=== PATIENT | female | born 1980 | race Caucasian/White ===

== ENCOUNTER 2020-05-29 13:47 | Emergency (ER) | payer OTHER ==
--- OUTSIDE RECORDS SUMMARY | 2020-05-29 14:19 | XMS REPORT | Continuity of Care Document ---
:1980 Author Organization [facility] t Address [address] [place] [address] Care Team Providers Name Role Phone Lab, Agustin Pob I Attending Clinician Unavailable Problems Condition Condition Condition Status Onset Resolution Last Treating Co mments Source Name Details Category Date Date Treatment Clinician Date Cyst of Cyst of Problem Active [facility] left ovary left ovary [facility]es - [facility] Pelvic Pelvic Problem Active [facility] pain pain [facility] Chills Chills Problem Active [facility] Acute Acute Problem Active [facility] nasopharyn nasopharyn Mari kes - gitis gitis Memoria [common [common l cold] cold] [facility] Encounter Encounter Problem Active [facility] - screening screening Abdirahman grabiel mammogram mammogram l for breast for breast [facility] IUD IUD Problem Active [facility] surveillan surveillan Mari kes - ce ce Memoria l [facility] ent Clinics Well woman Well woman Problem Active [facility] exam with exam with Luke s - routine routine Memoria gynecologi gynecologi l deborah exam deborah exam Outpat i ent Clinics Allergies, Adverse Reactions, Alerts Allergy Allergy Status Severity Reaction(s) Onset Inactive Treating Comm ents Source Name Type Date Date Clinician Erythrom Adverse Active Info Not [facility] t ycin Reaction Available [facility] Clinics Bactrim Adverse Active Info Not [facility] Reaction Available [facility]ics Augmenti Adverse Active Info Not [facility] t n Reaction Available [facility] Clinics Medications Ordered Filled Start Stop Current Ordering Indication Dosage Frequency Signature Comments Components Source Medication Medication Date Date Medication? Clinician (SIG) Name Name Dallas Haynes 2017-07 Yes Ann [address] 0-05 [place] each [facility] - 00:00: nostril Memoria 00 prn l [facility] Yes Ann 1 tablet [facility] Thyroid Thyroid [place] on an [facility] - empty Memoria stomach l [facility] Yes Ann 1 tablet [facility] t Thyroid Thyroid [place] on an [facility] - empty Memoria stomach l [facility] Procedures This patient has no known procedures. Encounters Start End Encounter Admission Attending Care Care Encounter Source Date/Time Date/Time Type Type Clinicians Facility Department ID 2020-02-03 2020-02-03 Laboratory Lab, [facility] [id number] 14:36:38 14:56:38 Only Fam Pob I Health [id number] [place] [id number] Professio [phone] nal 044 [address] One 2018-10-27 2018-10-27 Out[facility] [id number] [address] 09:15:00 09:15:00 t Urgent Urgent Care L [facility] - Care Clinic [facility] 2018-04-30 2018-04-30 Out[facility] [id number] 11:00:00 11:00:00 t Urgent Urgent Care L [facility] - Care [facility] 2018-03-03 2018-03-03 [facility] [id number] [address] 16:09:00 16:09:00 [facility] 2017-11-23 2017-11-23 [facility] [id number] 16:00:00 16:00:00 t [facility] Results This patient has no known results.
--- NOTE | 2020-05-29 17:02 | ER ---
Nurse's Notes [facility] Name: Deyanira Chaidez Age: 40 yrs Sex: Female : 1980 Arrival Date: 05/29/2020 Time: 13:48 Bed 6 Private MD: Diagnosis: Low back pain;Pain in right knee;Abrasion of right upper arm;Fall on same level from slipping, tripping and stumbling Presentation: 05/29 14:04 Chief complaint: Patient states: Slipped on wet surface at 1130. No LOC. Right knee ll1 pain and low back pain since. Abrasion noted to right bicep area. Coronavirus screen: Client denies travel out of the [place] in the last 14 days. At this time, the client does not indicate any symptoms associated with coronavirus-19. Ebola Screen: Patient denies travel to an Ebola-affected area in the 21 days before illness onset. Initial Sepsis Screen: Does the patient meet any 2 criteria? HR > 90 bpm. No. Patient's initial sepsis screen is negative. Does the patient have a suspected source of infection? Yes: Bone or joint infection. Risk Assessment: Do you want to hurt yourself or someone else? Patient reports no desire to harm self or others. Onset of symptoms was May 29, 2020. 14:04 Method Of Arrival: Ambulatory ll1 14:04 Acuity: NAE 4 ll1 Historical: - Allergies: 14:04 Bactrim; ll1 14:04 Erythromycin; ll1 - PMHx: 14:04 Endometrosis; Thyroid problem; ll1 - PSHx: 14:04 Tonsillectomy; Adenoids; Knee surgery; endometreosis surg x2; ; ll1 - Immunization history:: Flu vaccine is up to date. - Social history:: Smoking status: Patient denies any tobacco usage or history of. Screenin:39 Abuse screen: Denies threats or abuse. Denies injuries from another. Nutritional sv screening: No deficits noted. Tuberculosis screening: No symptoms or risk factors identified. Fall Risk None identified. Assessment: 15:46 General: Appears in no apparent distress. comfortable, well groomed, well developed, sv Behavior is calm, cooperative, appropriate for age. Pain: Complains of pain in lumbar area and right knee Pain currently is 6 out of 10 on a pain scale. Is intermittent. Neuro: Level of Consciousness is awake, alert, obeys commands, Oriented to person, place, time, situation, Moves all extremities. Full function Gait is steady, Speech is normal. Cardiovascular: Patient's skin is warm and dry. Pulses are palpable in right radial artery, right dorsalis pedis artery and left radial artery. Respiratory: Respiratory effort is even, unlabored, Respiratory pattern is regular, symmetrical. Derm: Skin is intact, Skin is pink, warm \T\ dry. Musculoskeletal: Circulation, motion, and sensation intact. Range of motion: intact in all extremities. Injury Description: Abrasion sustained to right bicep. 16:42 Reassessment: Patient appears in no apparent distress at this time. No changes from sv previously documented assessment. Patient and/or family updated on plan of care and expected duration. Pain level reassessed. Patient is alert, oriented x 3, equal unlabored respirations, skin warm/dry/pink. 17:09 Reassessment: Patient appears in no apparent distress at this time. No changes from sv previously documented assessment. Patient and/or family updated on plan of care and expected duration. Pain level reassessed. Patient is alert, oriented x 3, equal unlabored respirations, skin warm/dry/pink. Vital Signs: 14:04 BP 127 / 82; Pulse 115; Resp 17; Temp 97.8; Pulse Ox 100% ; Pain 6/10; ll1 15:52 BP 143 / 87; Pulse 97; Resp 16; Pulse Ox 99% ; sv 16:09 BP 127 / 88; Pulse 81; Resp 16; Pulse Ox 100% ; sv ED Course: 13:48 Patient arrived in ED. ag5 14:06 Triage completed. ll1 14:06 Arm band placed on. ll1 15:37 Samantha Venegas FNP-C is [facility]. kb 15:37 Kai Man MD is Attending Physician. kb 15:38 Maggi Downs RN is Primary Nurse. sv 15:39 Patient has correct armband on for positive identification. Bed in low position. Call sv light in reach. Door closed. Head of bed elevated. 15:52 Nurse Practitioner and/or Physician Picker Feeder to see patient. sv 15:52 Awaiting for x-ray. sv 15:52 Placed in gown. Pulse ox on. NIBP on. sv 15:52 Warm blanket given. sv 16:09 Awaiting for x-ray. sv 16:41 Awaiting radiology results. sv 16:41 Knee Right 3 View XRAY Sent. sv 16:41 Lumbar Spine (3 Views) XRAY Sent. sv 17:05 Lumbar Spine (3 Views) XRAY In Process Unspecified. EDMS 17:05 Knee Right 3 View XRAY In Process Unspecified. EDMS 17:09 No provider procedures requiring assistance completed. Patient did not have IV access sv during this emergency room visit. Administered Medications: No medications were administered Outcome: 17:02 Discharge ordered by . kb 17:09 Patient left the ED. sv 17:09 Discharged to home ambulatory. sv 17:09 Condition: stable 17:09 Discharge instructions given to patient, Instructed on discharge instructions, follow up and referral plans. medication usage, Demonstrated understanding of instructions, follow-up care, medications, Prescriptions given X 2. Signatures: Dispatcher [employer] EDSD Samantha Venegas, RX SPECIALIST-C RX SPECIALIST-Maggi Ordoñez RN RN Danyelle Ibrahim ag5 Art Sparrow, RN RN ll1
--- NOTE | 2020-05-29 17:03 | EDPHYS ---
Physician Documentation [facility] Name: Deyanira Chaidez Age: 40 yrs Sex: Female : 1980 Arrival Date: 05/29/2020 Time: 13:48 Bed 6 Private MD: ED Physician Kai Man HPI: 05/29 15:57 This 40 yrs old Female presents to ER via Ambulatory with complaints of Fall kb Injury. 15:57 Details of fall: The patient fell from an upright position, while walking. Onset: The kb symptoms/episode began/occurred just prior to arrival. Associated injuries: The patient sustained low back area, painful injury, right bicep, abrasion, right knee, painful injury. Severity of symptoms: At their worst the symptoms were mild, in the emergency department the symptoms are unchanged. The patient has not experienced similar symptoms in the past. The patient has not recently seen a physician. Pt reports she slipped in a small puddle of [place] on right side. c/o low back pain, knee pain and scratch to right upper arm. . Historical: - Allergies: 14:04 Bactrim; ll1 14:04 Erythromycin; ll1 - PMHx: 14:04 Endometrosis; Thyroid problem; ll1 - PSHx: 14:04 Tonsillectomy; Adenoids; Knee surgery; endometreosis surg x2; ; ll1 - Immunization history:: Flu vaccine is up to date. - Social history:: Smoking status: Patient denies any tobacco usage or history of. ROS: 15:52 Constitutional: Negative for fever, chills, and weight loss, Respiratory: Negative for kb shortness of breath, cough, wheezing, and pleuritic chest pain, Neuro: Negative for headache, weakness, numbness, tingling, and seizure. 15:52 Back: Positive for pain with movement, of the lumbar area. 15:52 MS/extremity: Positive for pain, tenderness, of the lumbar area. 15:52 Skin: Positive for abrasion(s), of the right bicep. Exam: 15:54 Constitutional: This is a well developed, well nourished patient who is awake, alert, kb and in no acute distress. Head/Face: Normocephalic, atraumatic. MS/ Extremity: Pulses equal, no cyanosis. Neurovascular intact. Full, normal range of motion. Neuro: Awake and alert, GCS 15, oriented to person, place, time, and situation. Cranial nerves II-XII grossly intact. Motor strength 5/5 in all extremities. Sensory grossly intact. Cerebellar exam normal. Normal gait. 15:54 Back: pain, that is mild, ROM is painful, with all movement, normal spinal alignment noted, CVA tenderness, is absent, vertebral tenderness, is appreciated at lumbar spine. 15:54 Skin: injury, abrasion(s), small abrasion noted, of the right bicep, contusion(s), that are superficial, of the right bicep. Vital Signs: 14:04 BP 127 / 82; Pulse 115; Resp 17; Temp 97.8; Pulse Ox 100% ; Pain 6/10; ll1 15:52 BP 143 / 87; Pulse 97; Resp 16; Pulse Ox 99% ; sv 16:09 BP 127 / 88; Pulse 81; Resp 16; Pulse Ox 100% ; sv MDM: 15:37 Patient medically screened. kb 15:45 Patient medically screened. kb 15:53 Data reviewed: vital signs, nurses notes. Data interpreted: Pulse oximetry: on room air kb is 99 %. Interpretation: normal. Counseling: I had a detailed discussion with the patient and/or guardian regarding: the historical points, exam findings, and any diagnostic results supporting the discharge/admit diagnosis, radiology results, the need for outpatient follow up, a family practitioner, to return to the emergency department if symptoms worsen or persist or if there are any questions or concerns that arise at home. 05/29 15:51 Order name: Lumbar Spine (3 Views) XRAY; Complete Time: 07:32 kb 05/29 15:51 Order name: Knee Right 3 View XRAY; Complete Time: 07:32 kb Administered Medications: No medications were administered Disposition: 17:34 Co-signature as Attending Physician, Kai Man MD. rn Disposition: 05/29/20 17:02 Discharged to Home. Impression: Low back pain, Pain in right knee, Abrasion of right upper arm, Fall on same level from slipping, tripping and stumbling. - Condition is Stable. - Discharge Instructions: Musculoskeletal Pain. - Prescriptions for Cyclobenzaprine 10 mg Oral Tablet - take 1 tablet by ORAL route every 8 hours As needed; 21 tablet. Diclofenac Sodium 75 mg Oral Tablet, Delayed Release (E.C.) - take 1 tablet by ORAL route 2 times per day As needed; 30 tablet. - Medication Reconciliation Form, Thank You Letter, Antibiotic Education, Prescription Opioid Use form. - Follow up: Emergency Department; When: As needed; Reason: Worsening of condition. Follow up: Private Physician; When: 2 - 3 days; Reason: Recheck today's complaints, Continuance of care, Re-evaluation by your physician. Signatures: Dispatcher [employer] EDMS Samantha Venegas, LUCAS-C METAL WORK DUCT INSTALLER-Maggi Ordoñez, RN RN sv Kai Man MD MD rn Andrews, Art RN RN ll1 Corrections: (The following items were deleted from the chart) 15:58 15:54 Skin: injury, abrasion(s), small abrasion noted, of the right bicep, kb kb 17:09 17:02 05/29/2020 17:02 Discharged to Home. Impression: Low back pain; Pain in right sv knee; Abrasion of right upper arm; Fall on same level from slipping, tripping and stumbling. Condition is Stable. Forms are Medication Reconciliation Form, Thank You Letter, Antibiotic Education, Prescription Opioid Use. Follow up: Emergency Department; When: As needed; Reason: Worsening of condition. Follow up: Private Physician; When: 2 - 3 days; Reason: Recheck today's complaints, Continuance of care, Re-evaluation by your physician. kb
--- NOTE | 2020-05-29 17:29 | RAD REPORT ---
EXAM DESCRIPTION: RAD - Lumbar Spine 3 Views - 05/29/2020 5:05 pm CLINICAL HISTORY: PAIN COMPARISON: LUMBAR SPINE 3 VIEWS dated 05/08/2014 FINDINGS: A three-view lumbar spine examination was performed. Lumbar bodies are normal in height and alignment. No fracture or acute bony process seen. L5-S1 disc space narrowing present. This has progressed since 2014. No other disc space narrowing. Minimal endpl ate spurring changes are present. No pars defects identified. No significant SI joint finding. IMPRESSION: No fracture or acute lumbar finding. L5-S1 disc space narrowing has progressed since 2014. Concerns for disc herniation, central canal abn ormality or occult bone process can be addressed with MR imaging.
--- NOTE | 2020-05-29 17:29 | RAD REPORT ---
EXAM DESCRIPTION: RAD - Knee Right 3 View - 05/29/2020 5:05 pm CLINICAL HISTORY: PAIN COMPARISON: No comparisons FINDINGS: No fracture, dislocation or periosteal reaction.No joint effusion seen. No joint space ian rowing. No foreign body or other soft tissue abnormality. IMPRESSION: Negative right knee. Clinical concerns for internal derangement or occult bony injury could be further assessed with MR im aging.
[2020-05-29 18:20] VITALS: TEMP 97.8
[2020-05-29 18:24] VITALS: BP 127/88; O2SAT 100
== END 2020-05-29 17:09 | disposition home or self-care (01) ==
LOC: ER 13:47
DX: S40.811A Abrasion of right upper arm, initial encounter (principal); M25.561 Pain in right knee; W01.0XXA Fall on same level from slipping, tripping and stumbling without subsequent striking against object, initial encounter; Y93.01 Activity, walking, marching and hiking; Y92.233 Cafeteria of hospital as the place of occurrence of the external cause; Y99.8 Other external cause status; Z88.1 Allergy status to other antibiotic agents; Z88.3 Allergy status to other anti-infective agents
CPT/HCPCS: 72100; 99283

== ENCOUNTER 2020-06-07 07:11 | Emergency (ER) | payer OTHER ==
--- OUTSIDE RECORDS SUMMARY | 2020-06-07 07:13 | XMS REPORT | Continuity of Care Document ---
:1980 Author Organization [facility] t Address [address] [place] [address] Care Team Providers Name Role Phone Lab, Agustin Pob I Attending Clinician Unavailable Problems Condition Condition Condition Status Onset Resolution Last Treating Co mments Source Name Details Category Date Date Treatment Clinician Date Cyst of Cyst of Problem Active [facility] left [facility] left ovary Mari kes - [facility] Pelvic Pelvic Problem Active [facility] pain pain [facility] Clinics Chills Chills Problem Active [facility] Acute Acute Problem Active [facility] nasopharyn nasopharyn Mari kes - gitis gitis Memoria [common [common l cold] cold] [facility] Encounter Encounter Problem Active [facility] for [facility] - screening screening Abdirahman grabiel mammogram mammogram l for breast for breast [facility] ent Clinics IUD IUD Problem Active [facility] surveillan surveillan Mari kes - ce ce Memoria l [facility] ent Clinics Well woman Well woman [...] ycin Reaction Available [facility] - [facility] ent Clinics Bactrim Adverse Active Info Not [facility] Reaction Available [facility] - [facility] ent Clinics Augmenti Adverse Active Info Not [facility] t n Reaction Available [facility] - [facility]oria [facility] ent Clinics Medications Ordered Filled Start Stop Current Ordering Indication Dosage Frequency Signature Comments Components Source Medication Medication Date Date Medication? Clinician (SIG) Name Name Dallas Haynes 2017-07 Yes Ann [address] 0-05 [place] each [facility] - 00:00: nostril Memoria 00 prn l [facility] Yes Ann 1 tablet [facility] t Thyroid Thyroid [place] on an [facility] - empty Memoria stomach l [facility] Yes Ann 1 tablet [facility] t Thyroid Thyroid [place] on an [facility]ukes - empty Memoria stomach l [facility] Procedures This patient has no known procedures. Encounters Start End Encounter Admission Attending Care Care Encounter Source Date/Time Date/Time Type Type Clinicians Facility Department ID 2020-02-03 2020-02-03 Laboratory Lab, [facility] [id number] 14:36:38 14:56:38 Only Fam Pob I Health [id number] [place] [id number] Professio [phone] nal 044 [address] 2018-10-27 2018-10-27 Outpatient [facility] [id number] 09:15:00 09:15:00 t [facility] 2018-04-30 2018-04-30 Out[facility] [id number] 11:00:00 11:00:00 t Urgent [facility] 2018-03-03 2018-03-03 Outpatient [facility] [place] [id number] 16:09:00 16:09:00 t [facility] 2017-11-23 2017-11-23 [facility] [id number] 16:00:00 16:00:00 t [facility] Results This patient has no known results.
--- NOTE | 2020-06-07 08:23 | RAD REPORT ---
EXAM DESCRIPTION: CT - Pelvis Wo Cont - 06/07/2020 8:01 am CLINICAL HISTORY: pain from fall Fall, right hip pain COMPARISON: Pelvis Wo Cont dated 01/08/2017; Spine Lumbar Wo Con dated 06/07/2020 TECHNIQUE: All CT scans are performed using dose optimization technique as appropriate and may inclu de automated exposure control or mA/KV adjustment according to patient size. 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 There is no evidence of acute fracture or dislocation. No AVN pattern is observed. No soft tissue mas s or hematoma is present. Sacroiliac joints are symmetric. IUD is seen in the uterus IMPRESSION: No acute abnormality identified.
--- NOTE | 2020-06-07 08:25 | RAD REPORT ---
EXAM DESCRIPTION: CT - Spine Lumbar Wo Con - 06/07/2020 8:01 am CLINICAL HISTORY: Radiculopathy. pain from fall COMPARISON: No comparisons TECHNIQUE: Axial noncontrast CT imaging of the lumbar spine was performed with coronal and sagittal re-formatted images. All CT scans are performed using dose optimization technique as appropriate and may include automated exposure control or mA/KV adjustment according to patient size. FINDINGS: No acute lumbar spine fracture seen. No aggressive marrow pattern or malalignment. Paraspinal tissues are normal in thickness. No paraspinal abscess or hematoma seen. Mild disc thinning at L5-S1. IMPRESSION: No acute lumbar spine abnormality.
--- NOTE | 2020-06-07 10:36 | EDPHYS ---
Physician Documentation [facility] Name: Deyanira Chaidez Age: 40 yrs Sex: Female : 1980 Arrival Date: 06/07/2020 Time: 07:13 Bed 17 Private MD: ED Physician Markus Ross HPI: 06/07 07:38 This 40 yrs old Female presents to ER via Ambulatory with complaints of kdr Follow Up From Fall. 07:38 The patient or guardian reports an injury, pain. that occurred at work, sustained from kdr a fall, from a standing position, while walking, There is no obvious deformity, The patient is able to self ambulate. The patient is able to bear their full body weight. The patient's discomfort radiates to the right femoral area and right hip. The complaints affect the coccyx, right femoral area and right hip. Onset: The symptoms/episode began/occurred suddenly, 1 week(s) ago. Modifying factors: The symptoms are alleviated by nothing, the symptoms are aggravated by any movement, weight bearing. Associated signs and symptoms: Loss of consciousness: the patient experienced no loss of consciousness, Pertinent positives: None. Severity of symptoms: At their worst the symptoms were moderate, just prior to arrival, in the emergency department the symptoms are unchanged. The patient has not experienced similar symptoms in the past. The patient has been recently seen by a physician: The patient has been recently seen at the [facility] Emergency Department, last week. Historical: - Allergies: 07:21 Bactrim; hb 07:21 Erythromycin; hb - Home Meds: 07:21 [place] Thyroid 120 mg Oral tab daily [Active]; hb - PMHx: 07:21 Endometrosis; Thyroid problem; hb - PSHx: 07:21 Tonsillectomy; Adenoids; Knee surgery; endometreosis surg x2; ; hb - Immunization history:: Adult Immunizations up to date. - Social history:: Smoking status: Patient denies any tobacco usage or history of. ROS: 07:38 Constitutional: Negative for fever, chills, and weight loss, Eyes: Negative for injury, kdr pain, redness, and discharge, ENT: Negative for injury, pain, and discharge, Neck: Negative for injury, pain, and swelling, Cardiovascular: Negative for chest pain, palpitations, and edema, Respiratory: Negative for shortness of breath, cough, wheezing, and pleuritic chest pain, Abdomen/GI: Negative for abdominal pain, nausea, vomiting, diarrhea, and constipation, Back: Negative for injury and pain, : Negative for injury, bleeding, discharge, and swelling, Skin: Negative for injury, rash, and discoloration, Neuro: Negative for headache, weakness, numbness, tingling, and seizure activity. Psych: Negative for depression, anxiety, suicide ideation, homicidal ideation, and hallucinations, Allergy/Immunology: Negative for hives, rash, and allergies, Endocrine: Negative for neck swelling, polydipsia, polyuria, polyphagia, and marked weight changes, Hematologic/Lymphatic: Negative for swollen nodes, abnormal bleeding, and unusual bruising. 07:38 MS/extremity: Positive for injury or acute deformity, pain, tenderness, of the right femoral area and right hip. Exam: 07:38 Constitutional: This is a well developed, well nourished patient who is awake, alert, kdr and in no acute distress. Head/Face: Normocephalic, atraumatic. Eyes: Pupils equal round and reactive to light, extra-ocular motions intact. Lids and lashes normal. Conjunctiva and sclera are non-icteric and not injected. Cornea within normal limits. Periorbital areas with no swelling, redness, or edema. Neck: Trachea midline, no thyromegaly or masses palpated, and no cervical lymphadenopathy. Supple, full range of motion without nuchal rigidity, or vertebral point tenderness. No Meningismus. Chest/axilla: Normal chest wall appearance and motion. Nontender with no deformity. No lesions are appreciated. Cardiovascular: Regular rate and rhythm with a normal S1 and S2. No gallops, murmurs, or rubs. Normal PMI, no JVD. No pulse deficits. Respiratory: Lungs have equal breath sounds bilaterally, clear to auscultation and percussion. No rales, rhonchi or wheezes noted. No increased work of breathing, no retractions or nasal flaring. Abdomen/GI: Soft, non-tender, with normal bowel sounds. No distension or tympany. No guarding or rebound. No evidence of tenderness throughout. Back: No spinal tenderness. No costovertebral tenderness. Full range of motion. Skin: Warm, dry with normal turgor. Normal color with no rashes, no lesions, and no evidence of cellulitis. Neuro: Awake and alert, GCS 15, oriented to person, place, time, and situation. Cranial nerves II-XII grossly intact. Motor strength 5/5 in all extremities. Sensory grossly intact. Cerebellar exam normal. Normal gait. Psych: Awake, alert, with orientation to person, place and time. Behavior, mood, and affect are within normal limits. 07:38 Musculoskeletal/extremity: ROM: intact in all extremities, Circulation is intact in all extremities. Sensation intact. Joints: the right hip displays painful range of motion. Vital Signs: 07:19 BP 149 / 79; Pulse 92; Resp 16; Temp 97.8; Pulse Ox 100% on R/A; Weight 67.13 kg; hb Height 5 ft. 7 in. (170.18 cm); Pain 8/10; 07:19 Body Mass Index 23.18 (67.13 kg, 170.18 cm) hb MDM: 07:38 Data reviewed: vital signs, nurses notes, radiologic studies. Counseling: I had a kdr detailed discussion with the patient and/or guardian regarding: the historical points, exam findings, and any diagnostic results supporting the discharge/admit diagnosis, radiology results, the need for outpatient follow up. 10:35 Patient medically screened. kdr 06/07 07:42 Order name: Pelvis Wo Cont; Complete Time: 08:29 EDMS 06/07 07:42 Order name: Spine Lumbar Wo Con; Complete Time: 08:29 EDMS Administered Medications: No medications were administered Disposition: 06/07/20 10:35 Discharged to Home. Impression: Pain in right hip. - Condition is Stable. - Discharge Instructions: Musculoskeletal Pain, Pain Without a Known Cause, Hip Pain. - Prescriptions for Tylenol- Codeine #3 300-30 mg Oral Tablet - take 2 tablet by ORAL route every 6 hours As needed; 30 tablet. - Medication Reconciliation Form, Thank You Letter, Prescription Opioid Use form. - Follow up: Private Physician; When: 2 - 3 days; Reason: If symptoms return, Further diagnostic work-up, Recheck today's complaints, Continuance of care, Re-evaluation by your physician. - Problem is new. - Symptoms have improved. Signatures: Dispatcher [employer] EDNC Markus Ross MD MD kdr Munoz, Edgar RN RN em Shahnaz Sosa RN RN Corrections: (The following items were deleted from the chart) 07:45 07:42 Hip Right Wo Con ordered. EDNC EDNC 10:42 10:35 06/07/2020 10:35 Discharged to Home. Impression: Pain in right hip. Condition is em Stable. Forms are Medication Reconciliation Form, Thank You Letter, Antibiotic Education, Prescription Opioid Use. Follow up: Private Physician; When: 2 - 3 days; Reason: If symptoms return, Further diagnostic work-up, Recheck today's complaints, Continuance of care, Re-evaluation by your physician. Problem is new. Symptoms have improved. kdr
--- NOTE | 2020-06-07 10:36 | ER ---
Nurse's Notes [facility] Name: Deyanira Chaidez Age: 40 yrs Sex: Female : 1980 Arrival Date: 06/07/2020 Time: 07:13 Bed 17 Private MD: Diagnosis: Pain in right hip Presentation: 06/07 07:19 Chief complaint: Right hip and low back pain after mechanical fall from standing one hb week ago. Coronavirus screen: At this time, the client does not indicate any symptoms associated with coronavirus-19. Ebola Screen: No symptoms or risks identified at this time. Initial Sepsis Screen: Does the patient meet any 2 criteria? No. Patient's initial sepsis screen is negative. Does the patient have a suspected source of infection? No. Patient's initial sepsis screen is negative. Risk Assessment: Do you want to hurt yourself or someone else? Patient reports no desire to harm self or others. Onset of symptoms was June 07, 2020. 07:19 Method Of Arrival: Ambulatory hb 07:19 Acuity: NAE 4 hb Historical: - Allergies: 07:21 Bactrim; hb 07:21 Erythromycin; hb - Home Meds: 07:21 [place] Thyroid 120 mg Oral tab daily [Active]; hb - PMHx: 07:21 Endometrosis; Thyroid problem; hb - PSHx: 07:21 Tonsillectomy; Adenoids; Knee surgery; endometreosis surg x2; ; hb - Immunization history:: Adult Immunizations up to date. - Social history:: Smoking status: Patient denies any tobacco usage or history of. Screenin:30 Abuse screen: Denies threats or abuse. Nutritional screening: No deficits noted. em Tuberculosis screening: No symptoms or risk factors identified. Fall Risk None identified. Assessment: 08:01 Reassessment: wheeled to radiology via wheelchair. em 08:20 General: Appears in no apparent distress. comfortable, Behavior is calm, cooperative, em appropriate for age. Pain: Complains of pain in lumbar area and right knee and right hip Pain currently is 8 out of 10 on a pain scale. Neuro: Level of Consciousness is awake, alert, obeys commands, Oriented to person, place, time, situation, Appropriate for age. Cardiovascular: Capillary refill < 3 seconds Patient's skin is warm and dry. Respiratory: Airway is patent Respiratory effort is even, unlabored, Respiratory pattern is regular, symmetrical. Derm: Skin is intact, is healthy with good turgor, Skin is pink, warm \T\ dry. Musculoskeletal: Capillary refill < 3 seconds. 09:55 Reassessment: was notified by MRI that the MRI machine is getting maintenance and will em take about 2 hours before pt will go to get MRI. 10:31 Reassessment: Dr. Ross at bedside discussing POC. em Vital Signs: 07:19 BP 149 / 79; Pulse 92; Resp 16; Temp 97.8; Pulse Ox 100% on R/A; Weight 67.13 kg; hb Height 5 ft. 7 in. (170.18 cm); Pain 8/10; 07:19 Body Mass Index 23.18 (67.13 kg, 170.18 cm) hb ED Course: 07:13 Patient arrived in ED. rg4 07:21 Triage completed. hb 07:21 Arm band placed on. hb 07:23 Markus Ross MD is Attending Physician. kdr 07:30 Patient has correct armband on for positive identification. Bed in low position. Call em light in reach. 07:37 Mamadou Malone, RN is Primary Nurse. em 08:01 Pelvis Wo Cont In Process Unspecified. EDMS 08:01 Spine Lumbar Wo Con In Process Unspecified. EDMS 08:09 CT completed. Patient tolerated procedure well. Patient moved back from CT. sw 10:32 No provider procedures requiring assistance completed. Patient did not have IV access em during this emergency room visit. Administered Medications: No medications were administered Outcome: 10:35 Discharge ordered by . kdr 10:41 Discharged to home ambulatory. em 10:41 Condition: good 10:41 Discharge instructions given to patient, Instructed on discharge instructions, follow up and referral plans. no drinking with medication, no driving heavy equipment, medication usage, Demonstrated understanding of instructions, follow-up care, medications, Prescriptions given X 1. 10:42 Patient left the ED. em Signatures: Dispatcher [employer] Markus Reilly MD MD [facility] Mamadou Malone, RN RN Anusha Huber Shahnaz Sosa RN RN Rhianna Neely rg4
[2020-06-07 13:09] VITALS: BP 149/79; TEMP 97.8; O2SAT 100
== END 2020-06-07 10:42 | disposition home or self-care (01) ==
LOC: ER 07:11
DX: M25.551 Pain in right hip (principal); W01.0XXD Fall on same level from slipping, tripping and stumbling without subsequent striking against object, subsequent encounter; Z88.1 Allergy status to other antibiotic agents; Z88.3 Allergy status to other anti-infective agents; E07.9 Disorder of thyroid, unspecified
CPT/HCPCS: 72131; 72192; 99284

== ENCOUNTER 2022-11-24 04:31 | Emergency (ER) | payer BC, OTHER ==
--- OUTSIDE RECORDS SUMMARY | 2022-11-24 04:35 | XMS REPORT | Continuity of Care Document ---
:[address] [facility] [place] Address [address] [place] [address] Care Team Providers Name Role Phone CLAIRE MACE Primary Care Physician Unavailable CLAIRE MACE Attending Clinician Unavailable JEFF CORRALES Attending Clinician Unavailable Melodie Attending Clinician Unavailable Madie Gutierrez RN Attending Clinician Unavailable UNKNOWN, ATTENDING Attending Clinician Unavailable Lab, Adc Fam Pob I Attending Clinician Unavailable Myrtle Fontenot Attending Clinician MYRTLE MONTOYA Attending Clinician Unavailable GEMA IGNACIO Attending Clinician Unavailable EbGema Gallegos Attending Clinician Melodie Admitting Clinician Unavailable Payers Payer Name Policy Type Policy Number Effective Date Expiration Date S gailfaisal BCBS PPO POS EPO [id number] 2022 CHOICE 00:00:00 [employer] [id number] 2018 00:00:00 COMMERCIAL [id number] 2015 NON-CONTRACT 00:00:00 GENERIC CIGNA II [id number] 2019 00:00:00 Problems Condition Condition Condition Status Onset Resolution Last Treating Co mments Source Name Details Category Date Date Treatment Clinician Date Left ankle Left ankle Disease Active U nivers pain pain 2-24 ity of 00:00: [place] 00 [facility] Cyst of Cyst of Problem Active Common left ovary left ovary Sp nahomi - [facility] Pelvic Pelvic Problem Active Common pain pain [facility] Chills Chills Problem Active Common [facility] Acute Acute Problem Active Common nasopharyn nasopharyn Sp nahomi gitis gitis - [facility] [common [common St cold] cold] [facility] Encounter Encounter Problem Active Com mon for for Spirit screening screening - CH I mammogram mammogram for breast for breast [facility] cancer [facility] IUD IUD Problem Active Common surveillan surveillan Sp nahomi ce ce - [facility] Well woman Well woman Problem Active C ommon exam with exam with Spir it routine routine - [facility] gynecologi gynecologi St deborah exam deborah exam [facility] Allergies, Adverse Reactions, Alerts Allergy Allergy Status Severity Reaction(s) Onset Inactive Treating Comm ents Source Name Type Date Date Clinician Erythrocurt Propensi Active Unknown - Unknown Un ritika ycin ty to See comments 09-19 she was ity of adverse 00:00: young [place] reaction 00 Medical s Branch ERYTHROM DRUG Active Unknown-Cmnt Un ritika YCIN 2 ity of 00:00: [place] 00 [facility] Branch SULFAMET Allergy Active [facility] -TR[facility] 00:00: Medical OPRIM 00 Center ERYTHROM Allergy Active [facility]CIN [facility] 00:00: Medical 00 Center Sulfamet Drug Active [facility] hoxazole Allergy [facility] -Trim[facility] 00:00: Medical oprim 00 Center Erythrom Drug Active Unknown [facility] ycin Allergy 5-29 reaction [facility] 00:00: as a Medical 00 child Center Erythrom Adverse Active Info Not Commo n ycin Reaction Available [facility] Bactrim Adverse Active Info Not Common Reaction Available [facility] Augmenti Adverse Active Info Not Commo n n Reaction Available [facility] Social History Social Habit Start Date Stop Date Quantity Comments Source Exposure to Yes University of SARS-CoV-2 [place] Medical (event) Branch Alcohol intake 2015-09-19 2015-09-19 Current drinker Unive rsity of 00:00:00 00:00:00 of alcohol [facility] (finding) Branch Tobacco use and 2015-09-19 2015-09-19 Never used Universit y of exposure 00:00:00 00:00:00 [facility] Sex Assigned At [address] [facility] ped[facility] 00:00:00 00:00:00 Medical Center Smoking Status Start Date Stop Date Source Current some day smoker 2015-09-19 00:00:00 [facility] Medications Ordered Filled Start Stop Current Ordering Indication Dosage Frequency Signature Comments Components Source Medication Medication Date Date Medication? Clinician (SIG) Name Name [place] Haynes 2017-07 Yes Ann 2 sprays C ommon 0-05 [place] each Spirit 00:00: nostril - [facility] 00 [facility] THYROID,POR 2015- Yes Take by Uni vers K (ARMOUR 2-24 mouth. ity of THYROID 22:29: [place] ORAL) [address] [place] [address] Branch THYROID,POR 2015-0 Yes Take by Uni vers K (ARMOUR 2-24 mouth. ity of THYROID 22:29: [place] ORAL) [address] [place] [address] Branch THYROID,POR 2016-0 Yes Take by Uni vers K (ARMOUR 2-24 mouth. ity of THYROID 22:29: [place] ORAL) [address] [place] [address] Branch THYROID,POR 2015-0 Yes Take by Uni vers K (ARMOUR 2-24 mouth. ity of THYROID 22:29: [place] ORAL) [address] [place] [address] Branch methylPREDN 2016-0 Yes 84mg Take 21 Uni vers ISolone 2-24 Tabs by ity of (MEDROL, 00:00: mouth [place] SG,) 4 mg 00 SEE-INSTRU Med ical tablets CTIONS. Branch follow package directions methylPREDN 2015-0 Yes 84mg Take 21 Uni vers ISolone 2-24 Tabs by ity of (MEDROL, 00:00: mouth [place] SG,) 4 mg 00 SEE-INSTRU Med ical tablets CTIONS. Branch follow package directions methylPREDN 2016-0 Yes 84mg Take 21 Uni vers ISolone 2-24 Tabs by ity of (MEDROL, 00:00: mouth [place] SG,) 4 mg 00 SEE-INSTRU Med ical tablets CTIONS. Branch follow package directions methylPREDN 2016-0 Yes 84mg Take 21 Uni vers ISolone 2-24 Tabs by ity of (MEDROL, 00:00: mouth [place] SG,) 4 mg 00 SEE-INSTRU Med ical tablets CTIONS. Branch follow package directions THYROID,POR 2015-0 Yes Take by DONNY Carmona K (ARMOUR 5-29 mouth. [facility]ukes THYROID 09:50: Medical ORAL) Center [facility] Yes Ann 1 tablet Commo n Thyroid Thyroid [place] on an Spirit empty - CHI stomach [facility] Yes Ann 1 tablet Commo n Thyroid Thyroid [place] on an Spirit empty - [facility] stomach [facility] Procedures This patient has no known procedures. Plan of Care Planned Activity Planned Date Details Comments Source Future Scheduled 2023-03-[address] [facility] Test 00:00:00 (Season Ended) [code Medical Center = INFLUENZA VACCINE (Season Ended)] Future Scheduled 2022-07-[address] [facility] Test 00:00:00 (12+) [code = [facility] DEPRESSION SCREENING (12+)] Future Scheduled 2001-01-[address] [facility] Test 00:00:00 malignant neoplasm of Medica l Center cervix (procedure) [code = 428225459] Future Scheduled 1999-01-14 DTAP/TDAP/TD VACCINES [facility] Test 00:00:00 (1 - Tdap) [code = Medical C enter DTAP/TDAP/TD VACCINES (1 - Tdap)] Future Scheduled 1998-01-14 HEPATITIS C SCREENING [facility] Test 00:00:00 [code = HEPATITIS C Medical Center SCREENING] Future Scheduled [address] [facility] Test 00:00:00 Counseling and Medical Cente r Screening (12+) [code = Tobacco Cessation Counseling and Screening (12+)] Future Scheduled 1980 COVID-19 VACCINE (#1) [facility] Test 00:00:00 [code = COVID-[address] VACCINE (#1)] Encounters Start End Encounter Admission Attending Care Care Encounter Source Date/Time Date/Time Type Type Clinicians Facility Department ID 2022-11-04 Outpatient CLAIRE MACE [facility] [id number] Common 15:47:00 [id number] [facility] 2022-10-29 Outpatient CLAIRE MACE [facility] [id number] Common 11:26:00 [id number] [facility] - [facility] 2023-01-13 2023-01-13 Outpatient CANDIE CORRALES, [facility] [id number] [facility] 00[facility]00[facility]00 [facility] 2021-10-07 2021-10-07 Outpatient [email or web address] PRIV PRIV [id number] [facility] 11:35:00 11:35:00 [place] [id number] Medic al 2021-03-16 2021-03-16 Letter DEMI Gutierrez [id number] Univers 00:00:00 00:00:00 (Out) Madie ZURITA [id number] it [facility] [id number] [place] as [phone] [address] 2021-03-15 2021-03-15 Outpatient R JAMIE [facility] [id number] Univers 11:35:00 11:35:00 ATTENDING ity [facility] 2020-12-03 2020-12-03 Laboratory Lab, [facility] Fam Pob I [facility] [id number]. [id number] Univers 09:31:47 09:51:47 Only ReidMyrtle [id number] ity [facility] [id number] [place] Professio [phone] [address] One 2020-12-03 2020-12-03 Outpatient R REID [facility] [id number] Univers 09:40:00 09:40:00 MYRTLE ity [facility] 2020-11-20 2020-11-20 Laboratory Lab, [facility] Fam Po I [facility] 1.2. [id number] Univers 11:42:57 12:02:57 Only Myrtle [facility] [id number] ity [facility] [id number] [place] Professio [id number] [address] One 2020-11-20 2020-11-20 Outpatient R REID [facility] [id number] Univers 11:40:00 11:40:00 MYRTLE moran [facility] 2020-02-03 2020-02-03 Outpatient R SANDEE [facility] [id number] Univers 15:00:00 15:00:00 GEMA moran [facility] 2020-02-03 2020-02-03 Laboratory Lab, [facility] [id number] 14:36:38 14:56:38 Only Fam Pob I Health [id number] [place] [id number] Professio [phone] nal [facility] Office Building One 2020-02-03 2020-02-03 Laboratory Lab, [facility] Fam Pob I [facility] 1.2. [id number] [facility] [place] [facility] 14:36:38 14:56:38 Only Gema Ignacio [facility] [id number] ity of [place] [id number] [place] as Professio [phone] Me dical [address] Office [address] One 2018-10-27 2018-10-27 Outpatient [facility] [id number] Common 09:15:00 09:15:00 t Urgent Urgent Care [facility] 2018-04-30 2018-04-30 Outpatient [facility] [id number] Common 11:00:00 11:00:00 t Urgent Urgent Care S [facility] - [facility] 2018-03-03 2018-03-03 Out[facility] [id number] Common 16:09:00 16:09:00 [facility] 2017-11-23 2017-11-23 Outpatient [facility] [id number] Common 16:00:00 16:00:00 t [facility] - I [facility] Results This patient has no known results.
[2022-11-24] MEDS ORDERED: PROMETHAZINE 25 MG TABLET ONE (05:21)
[2022-11-24] MEDS ORDERED: CETIRIZINE HCL 5 MG TABLET ONE (05:21)
[2022-11-24] MEDS ORDERED: levoFLOXacin 750 MG TAB ONE (05:21)
[2022-11-24] MEDS ORDERED: ALBUTEROL 2.5 MG/3 ML NEB SOL ONE (05:21)
[2022-11-24 05:22] LABS: Absolute Lymphocytes (CBC) 0.8 K/uL (0.7-4.9); Hematocrit 34.1 % (36.0-45.0); Lymphocytes % 8.9 % (15.3-44.8); MCV 89.2 fL (80-100); MPV 7.2 fL (7.6-11.3); RBC Red Blood Cell Count 3.82 M/uL (3.86-4.86)
[2022-11-24 05:23] LABS: Protime INR 0.99
[2022-11-24] MEDS ORDERED: GUAIFENESIN/DM 5 ML UCUP ONE (05:25)
[2022-11-24] MEDS ORDERED: IPRATROPIUM BROM 0.5MG/2.5ML ONE (05:27)
[2022-11-24 05:40] LABS: Albumin 3.6 g/dL (3.4-5.0); Bilirubin Direct 0.1 mg/dL (0-0.2); Bilirubin Total 0.5 mg/dL (0.2-1.0); Magnesium 1.6 mg/dL (1.6-2.4); Potassium 3.3 mEq/L (3.5-5.1); Protein, Total 6.6 g/dL (6.4-8.2); Troponin High Sensitivity 4.3 pg/mL (<58.9)
--- NOTE | 2022-11-24 06:18 | ER ---
Nurse's Notes [facility] Name: Deyanira Chaidez Age: 42 yrs Sex: Female : 1980 Arrival Date: 11/24/2022 Time: 04:31 Bed 5 Private MD: Diagnosis: Other pneumonia, unspecified organism;Acute bronchitis, unspecified;Acute bacterial bronchitis, right lower lung pneumonia Presentation: 11/24 04:38 Chief complaint: Patient states: "I feel like I have pneumonia again". Coronavirus as6 screen: At this time, the client does not indicate any symptoms associated with coronavirus-19. Ebola Screen: No symptoms or risks identified at this time. Initial Sepsis Screen: Does the patient meet any 2 criteria? No. Patient's initial sepsis screen is negative. Does the patient have a suspected source of infection? No. Patient's initial sepsis screen is negative. Risk Assessment: Do you want to hurt yourself or someone else? Patient reports no desire to harm self or others. Onset of symptoms was November 22, 2022. 04:38 Method Of Arrival: Ambulatory as6 04:38 Acuity: NAE 3 as6 Historical: - Allergies: 04:40 Bactrim; as6 04:40 Erythromycin; as6 - PMHx: 04:40 Endometrosis; Thyroid problem; as6 - PSHx: 04:40 section; knee; Tonsillectomy; as6 - Immunization history:: Client reports receiving the 2nd dose of the Covid vaccine, moderna. - Social history:: Smoking status: Patient denies any tobacco usage or history of. - Family history:: not pertinent. Screenin:40 [facility] ED Fall Risk Assessment (Adult) History of falling in the last 3 months, as6 including since admission No falls in past 3 months (0 pts) Confusion or Disorientation No (0 pts) Score/Fall Risk Level 0 - 2 = Low Risk Oriented to surroundings, Maintained a safe environment. Abuse screen: Denies threats or abuse. Nutritional screening: No deficits noted. Tuberculosis screening: No symptoms or risk factors identified. Assessment: 04:40 General: Appears in no apparent distress. uncomfortable, Behavior is calm, cooperative, as6 appropriate for age. Pain: Complains of pain in chest Pain does not radiate. Pain currently is 7 out of 10 on a pain scale. Quality of pain is described as aching. Neuro: Level of Consciousness is awake, alert, obeys commands, Oriented to person, place, time, situation. Cardiovascular: Patient's skin is warm and dry. Respiratory: Reports cough that is persistent Airway is patent Respiratory effort is even, unlabored, Respiratory pattern is regular, symmetrical. GI: No signs and/or symptoms were reported involving the gastrointestinal system. : No signs and/or symptoms were reported regarding the genitourinary system. EENT: No signs and/or symptoms were reported regarding the EENT system. Derm: Skin is intact, Skin is pink, warm \\T\\ dry. 05:59 Reassessment: Patient appears in no apparent distress at this time. Patient and/or jb4 family updated on plan of care and expected duration. Pain level reassessed. Patient is alert, oriented x 3, equal unlabored respirations, skin warm/dry/pink. 06:37 Reassessment: Patient appears in no apparent distress at this time. Patient and/or as6 family updated on plan of care and expected duration. Pain level reassessed. Patient is alert, oriented x 3, equal unlabored respirations, skin warm/dry/pink. Vital Signs: 04:38 BP 134 / 82; Pulse 114; Resp 20 S; Temp 99.3(O); Pulse Ox 94% on R/A; Weight 67.13 kg as6 (R); Height 5 ft. 7 in. (R); Pain 7/10; 05:59 BP 135 / 78; Pulse 122; Resp 20; Pulse Ox 100% on Nebulizer Mask; jb4 04:38 Body Mass Index 23.18 (67.13 kg, 170.18 cm) as6 04:38 Pain Scale: Adult as6 ED Course: 04:35 Patient arrived in ED. jj6 04:38 Vic Mendez MD is Attending Physician. sp4 04:40 Triage completed. as6 04:41 Arm band placed on. as6 04:55 XRAY Chest (1 view) In Process Unspecified. EDMS 06:37 Patient has correct armband on for positive identification. Client placed on continuous as6 cardiac and pulse oximetry monitoring. NIBP monitoring applied. 06:37 No provider procedures requiring assistance completed. Patient did not have IV access as6 during this emergency room visit. Patient maintains SpO2 saturation greater than 95% on room air. Administered Medications: 05:27 Drug: Dextromethorphan-Guaifenesin PO Liquid 10 mg-100 mg/5 mL 15 ml Route: PO; jb4 06:38 Follow up: Response: No adverse reaction; Marked relief of symptoms as6 05:27 Drug: DuoNeb Nebulize (3:1) (2.5 mg - 0.5 mg) 3 ml Route: Nebulizer; jb4 06:38 Follow up: Response: No adverse reaction; Marked relief of symptoms as6 05:27 Drug: Promethazine PO 25 mg Route: PO; jb4 06:38 Follow up: Response: No adverse reaction as6 05:30 Drug: ZyrTEC - Cetirizine PO 10 mg Route: PO; jb4 06:38 Follow up: Response: No adverse reaction as6 05:30 Drug: LevOfloxacin PO 750 mg Route: PO; jb4 06:38 Follow up: Response: No adverse reaction as6 Medication: 06:37 VIS not applicable for this client. as6 Outcome: 06:16 Discharge ordered by . sp4 06:37 Discharged to home ambulatory. as6 06:37 Condition: stable 06:37 Discharge instructions given to patient, Instructed on discharge instructions, follow up and referral plans. medication usage, Demonstrated understanding of instructions, follow-up care, medications, Prescriptions given X 3. 06:39 Patient left the ED. as6 Signatures: Dispatcher [employer] EDMS Jeffrey Chen RN RN jb4 Lurdes Murphy6 Kevyn Lewis RN RN as6 Vic Mendez MD MD sp4
--- NOTE | 2022-11-24 06:18 | EDPHYS ---
Physician Documentation [facility] Name: Deyanira Chaidez Age: 42 yrs Sex: Female : 1980 Arrival Date: 11/24/2022 Time: 04:31 Bed 5 Private MD: ED Physician Vic Mendez HPI: 11/24 06:00 This 42 yrs old Female presents to ER via Ambulatory with complaints of Chest sp4 Pain, Arm Pain, Neck and Upper Back Pain, Congestion, Cough. 06:00 42-year-old female presents with acute onset of cough associated with brown and sp4 purulent sputum starting Thursday 3 days ago associated with chills, subjective fever, nasal discharge, nasal congestion, upper respiratory congestion, feeling unwell overall. Patient also reports that she has had similar episode last associated with pneumonia and she was treated with albuterol and also some p.o. antibiotic. Historical: - Allergies: 04:40 Bactrim; as6 04:40 Erythromycin; as6 - PMHx: 04:40 Endometrosis; Thyroid problem; as6 - PSHx: 04:40 section; knee; Tonsillectomy; as6 - Immunization history:: Client reports receiving the 2nd dose of the Covid vaccine, moderna. - Social history:: Smoking status: Patient denies any tobacco usage or history of. - Family history:: not pertinent. ROS: 06:00 Constitutional: Negative weight loss, positive for subjective fever, chills, overall sp4 feeling unwell, generalized weakness Eyes: Negative for injury, pain, redness, and discharge, ENT: Negative for injury, pain, and discharge, positive for upper respiratory congestion, cough, purulent sputum Neck: Negative for injury, pain, and swelling, Cardiovascular: Negative for chest pain, palpitations, and edema, Respiratory: Positive for shortness of breath, cough, pleuritic chest pain, purulent cough Abdomen/GI: Negative for abdominal pain, nausea, vomiting, diarrhea, and constipation, Back: Negative for injury and pain, : Negative for injury, bleeding, discharge, and swelling, MS/Extremity: Negative for injury and deformity, Skin: Negative for injury, rash, and discoloration, Neuro: Negative for headache, weakness, numbness, tingling, and seizure, Psych: Negative for depression, anxiety, Allergy/Immunology: Negative for hives, rash, and allergies Endocrine: Negative for neck swelling, polydipsia, polyuria, polyphagia, and weight changes Hematologic/Lymphatic: Negative for swollen nodes, abnormal bleeding, and unusual bruising Exam: 06:00 Constitutional: This is a well developed, well nourished patient who is awake, alert, sp4 and in no acute distress. On exam there is cough and coryza also upper respiratory congestion. Head/Face: Normocephalic, atraumatic. Eyes: Pupils equal round and reactive to light, extra-ocular motions intact. Lids and lashes normal. Conjunctiva and sclera are not injected. Cornea within normal limits. Periorbital areas with no swelling, redness, or edema. ENT: Nares patent. No nasal discharge, no septal abnormalities noted. Tympanic membranes are normal and external auditory canals are clear. Oropharynx with no redness, swelling, or masses, exudates, or evidence of obstruction, uvula midline. Mucous membranes moist. Neck: Trachea midline, no thyromegaly or masses palpated, and no cervical lymphadenopathy. Supple, full range of motion without nuchal rigidity, or vertebral point tenderness. No Meningismus. Chest/axilla: Normal chest wall appearance and motion. Nontender with no deformity. No lesions are appreciated. Cardiovascular: Regular tachycardia, otherwise normal no gallops, murmurs, or rubs. Normal PMI, no JVD. No pulse deficits. Respiratory: Lungs have equal breath sounds bilaterally, clear to auscultation and percussion. No rales, rhonchi or wheezes noted. Regular tachypnea, otherwise normal Abdomen/GI: Soft, non-tender, with normal bowel sounds. No distension or tympany. No guarding or rebound. No evidence of tenderness throughout. Back: No spinal tenderness. No costovertebral tenderness. Skin: Warm, dry with normal turgor. Normal color with no rashes, no lesions, and no evidence of cellulitis. MS/ Extremity: Pulses equal, no cyanosis. Neurovascular intact. Full, normal range of motion. Neuro: Awake and alert, GCS 15, oriented to person, place, time, and situation. Cranial nerves II-XII grossly intact. Motor strength 5/5 in all extremities. Sensory grossly intact. Psych: Awake, alert, with orientation to person, place and time. Behavior, mood, and affect are within normal limits 06:00 ECG was reviewed by the Attending Physician. EKG time 0500, sinus tachycardia at rate sp4 110, normal intervals, no ectopy, no ST elevation or depression, overall normal EKG besides tachycardia Vital Signs: 04:38 BP 134 / 82; Pulse 114; Resp 20 S; Temp 99.3(O); Pulse Ox 94% on R/A; Weight 67.13 kg as6 (R); Height 5 ft. 7 in. (R); Pain 7/10; 05:59 BP 135 / 78; Pulse 122; Resp 20; Pulse Ox 100% on Nebulizer Mask; jb4 04:38 Body Mass Index 23.18 (67.13 kg, 170.18 cm) as6 04:38 Pain Scale: Adult as6 MDM: 04:43 Patient medically screened. sp4 06:00 Differential diagnosis: acute pericarditis, anxiety, chest wall pain, gastroesophageal sp4 reflux disease (GERD), myocarditis, pericarditis, pleurisy, pneumonia, stable angina. HEART Score: History: Slightly Suspicious (0), ECG: Normal (0), Age: < or = 45 years (0), Risk Factors: No Risk Factors Known (0), Troponin: < or = 1 x Normal Limit (0), Total Score = 0. Data reviewed: vital signs, nurses notes, old medical records, lab test result(s), cardiac enzymes, CBC, electrolytes, hepatic panel, EKG, radiologic studies, plain films. ED course: EKG reveals sinus tachycardia, labs basically unremarkable except for mild hypokalemia potassium 3.3, coagulation panel unremarkable, troponin is normal, suspicion for ACS is extremely low, patient's x-ray has revealed hazy airspace disease in the right infrahilar region which may represent pneumonia or atelectasis. At this time patient's diagnosis acute early onset right lower lung pneumonia associated with purulent cough and sputum , will prescribe p.o. Levaquin for the next 7 days, also albuterol inhaler and cough suppressant dextromethorphan with guaifenesin.. Patient is stable for discharge home with work release for the next 3 days. 11/24 04:38 Order name: Basic Metabolic Panel; Complete Time: 05:57 sp4 11/24 04:38 Order name: CBC with Diff; Complete Time: 05:57 sp4 11/24 04:38 Order name: LFT's; Complete Time: 05:57 sp4 11/24 04:38 Order name: Magnesium; Complete Time: 05:57 sp4 11/24 04:38 Order name: NT PRO-BNP; Complete Time: 05:57 sp4 11/24 04:38 Order name: PT-INR; Complete Time: 05:57 sp4 11/24 04:38 Order name: Troponin HS; Complete Time: 05:57 sp4 11/24 04:38 Order name: XRAY Chest (1 view) 4 11/24 04:38 Order name: EKG; Complete Time: 04:39 sp4 11/24 04:38 Order name: Cardiac monitoring; Complete Time: 04:59 sp4 11/24 04:38 Order name: EKG - Nurse/Tech; Complete Time: 04:59 sp4 11/24 04:38 Order name: IV Saline Lock; Complete Time: 05:27 sp4 11/24 04:38 Order name: Labs collected and sent; Complete Time: 04:59 sp4 11/24 04:38 Order name: O2 Per Protocol; Complete Time: 04:58 sp4 11/24 04:38 Order name: O2 Sat Monitoring; Complete Time: 04:58 sp4 EC:00 Rate is 110 beats/min. Rhythm is regular, Sinus tachycardia. QRS [place] is Normal. [place] sp4 interval is normal. QRS interval is normal. QT interval is normal. T waves are Normal. No ST changes noted. Clinical impression: No evidence of ischemia. Interpreted by me. Administered Medications: 05:27 Drug: Dextromethorphan-Guaifenesin PO Liquid 10 mg-100 mg/5 mL 15 ml Route: PO; jb4 06:38 Follow up: Response: No adverse reaction; Marked relief of symptoms as6 05:27 Drug: DuoNeb Nebulize (3:1) (2.5 mg - 0.5 mg) 3 ml Route: Nebulizer; jb4 06:38 Follow up: Response: No adverse reaction; Marked relief of symptoms as6 05:27 Drug: Promethazine PO 25 mg Route: PO; jb4 06:38 Follow up: Response: No adverse reaction as6 05:30 Drug: ZyrTEC - Cetirizine PO 10 mg Route: PO; jb4 06:38 Follow up: Response: No adverse reaction as6 05:30 Drug: LevOfloxacin PO 750 mg Route: PO; jb4 06:38 Follow up: Response: No adverse reaction as6 Disposition Summary: 11/24/22 06:16 Discharge Ordered Location: Home sp4 Problem: new sp4 Symptoms: have improved sp4 Condition: Stable sp4 Diagnosis - Other pneumonia, unspecified organism sp4 - Acute bronchitis, unspecified sp4 - Acute bacterial bronchitis, right lower lung pneumonia sp4 Followup: sp4 - With: Private Physician - When: 7 - 10 days - Reason: Recheck today's complaints Discharge Instructions: - Discharge Summary Sheet sp4 - Community-Acquired Pneumonia, Adult, [id number] sp4 Forms: - Antibiotic Education sp4 Prescriptions: - Ventolin HFA 90 mcg/actuation Inhalation HFA Aerosol Inhaler - inhale 2 inhalation by INHALATION route every 4 hours PRN cough or dyspnea , sp4 Dispense with SPACER; 1 unit; Refills: 0, Product Selection Permitted - dextromethorphan-guaifenesin 10-200 mg Oral capsule - take 2 capsule by ORAL route every 4 hours as needed for cough; 60 capsule; sp4 Refills: 0, Product Selection Permitted - levofloxacin 750 mg Oral Tablet - take 1 tablet by ORAL route once daily; 7 tablet; Refills: 0, Product Selection sp4 Permitted Signatures: Dispatcher [employer] Jeffrey Minaya, RN RN jb4 Kevyn Lewis RN RN as6 Vic Mendez MD MD sp4
[2022-11-24 06:44] VITALS: TEMP 99.3
[2022-11-24 06:45] VITALS: BP 135/78; O2SAT 100
--- NOTE | 2022-11-24 12:54 | RAD REPORT ---
EXAM DESCRIPTION: RAD - Chest Single View - 11/24/2022 4:53 am CLINICAL HISTORY: CHEST PAIN TECHNIQUE: AP chest COMPARISON: None available for comparison FINDINGS: CHEST: Heart: The cardiomediastinal silhouette is within normal limits. Lungs: Hazy airspace disease in the right infrahilar region which may represent pneumonia and atelect asis. Follow-up PA and lateral radiographs would be helpful in further evaluation Mediastinum: Unremarkable Pleura: No appreciable effusion. No pneumothorax. Bones: Intact IMPRESSION: Hazy airspace disease in the right infrahilar region which may represent pneumonia and a telectasis. Follow-up PA and lateral radiographs would be helpful in further evaluation. Electronically signed by: Carlo Pacheco MD 11/24/2022 5:09 AM CDT Due to temporary technical issues with the PACS/Fluency reporting system, reports are being signed by the in house radiologist without review as a courtesy to ensure prompt reporting. The interpreting r adiologist is fully responsible for the content of the report.
--- NOTE | 2022-11-25 08:12 | EKG ---
Test Date: 2022-11-24 Test Time: 05:00:02 Research Recruiter: AMANDA MEASUREMENT RESULTS: Intervals: Rate: 110 DE: 124 QRSD: 78 QT: 322 QTc: 435 [place]: P: 73 DE: 124 QRS: 76 T: 55 INTERPRETIVE STATEMENTS: Sinus tachycardia Possible Left atrial enlargement Borderline ECG No previous ECG available for comparison Electronically Signed On 11-25-22 08:11:02 CDT by Ángel Franco
== END 2022-11-24 06:39 | disposition home or self-care (01) ==
LOC: ER 04:31
DX: J18.8 Other pneumonia, unspecified organism (principal); J20.9 Acute bronchitis, unspecified; Z88.1 Allergy status to other antibiotic agents; Z88.3 Allergy status to other anti-infective agents
CPT/HCPCS: 93005; 85025; 80048; 36415; 83735; 85610; 80076; 84484; 83880; 71045; 94640; 99284; Q0169; J7613; J7644